=== PATIENT | female | born 1940 | race Caucasian/White ===

== ENCOUNTER 2017-09-01 17:30 | Inpatient (IN) | payer OTHER, MEDICAID ==
[~2017-09-01] VITALS: Ht 157.5 cm; Wt 62.1 kg
[2017-09-01] MEDS ORDERED: SODIUM CHLORIDE 0.9% 250 ML IV ONE (22:12)
[2017-09-01 23:33] LABS: BASOPHILS % 0.5 % (0.0-2.0); EOSINOPHILS % 2.2 % (0.0-5.0); HEMATOCRIT. 33.5 % (36.0-48.0); LYMPHOCYTES % 30.1 % (20.0-50.0); MEAN CORPUSCULAR HEMOGLOBIN 31.7 pg (28.0-32.0); MEAN CORPUSCULAR VOLUME 88.4 fL (81.0-99.0); MEAN PLATELET VOLUME 9.2 fl (7.4-10.4); MONOCYTES % 9.5 % (2.0-8.0); NEUTROPHILS % 57.7 % (40.0-76.0); PLATELET 280 x1000/uL (130-400); RED BLOOD CELL COUNT 3.79 mill/uL (4.2-5.4)
[2017-09-01 23:40] LABS: PROTHROMBIN TIME 10.7 sec (9.4-11.6)
[2017-09-01 23:44] LABS: CHLORIDE 85 mEq/L (98-107)
[2017-09-01 23:51] LABS: CREATINE KINASE 74 IU/L (26-192); ETHANOL BLOOD < 10 mg/dL
[2017-09-02] MEDS ORDERED: SODIUM CHLORIDE 0.9% 1,000 ML IV SCH (00:42)
[2017-09-02] MEDS ORDERED: GUAIFENESIN 200MG/10ML SUGAR FREE UDC PO PRN (00:45)
[2017-09-02] MEDS ORDERED: MORPHINE SULFATE 4 MG/ML CPJ (NOT FOR IM USE) IV PRN (00:45)
[2017-09-02] MEDS ORDERED: LORAZEPAM 0.5MG TABLET PO PRN (00:45)
[2017-09-02] MEDS ORDERED: NA PHOS,M-B/NA PHOS,DI-BA ENEMA 118ML PR PRN (00:45)
[2017-09-02] MEDS ORDERED: ONDANSETRON HCL 4MG/2ML VIAL IV PRN (00:45)
[2017-09-02] MEDS ORDERED: ACETAMINOPHEN 325MG TABLET PO PRN (00:45)
[2017-09-02] MEDS ORDERED: DOCUSATE SODIUM 100MG CAPSULE PO PRN (00:45)
[2017-09-02] MEDS ORDERED: IPRATROPIUM/ALBUTEROL 0.5-3(2.5)MG/3ML NEB INH PRN (00:45)
[2017-09-02] MEDS ORDERED: DIPHENHYDRAMINE 50MG/ML VIAL IV PRN (00:45)
[2017-09-02] MEDS ORDERED: CLONIDINE 0.1MG TABLET PO PRN (00:45)
[2017-09-02] MEDS ORDERED: HYDROCODONE/ACETAMINOPHEN 5/325MG TABLET PO PRN (00:45)
[2017-09-02] MEDS ORDERED: MAGNESIUM/ALUMINUM HYDROXIDE/SIMETHICONE 30ML UDC PO PRN (00:45)
[2017-09-02 06:03] LABS: CHLORIDE 88 mEq/L (98-107)
[2017-09-02 09:35] VITALS: BP 154/61
[2017-09-02 10:48] VITALS: BP 154/61
[2017-09-02] MEDS ORDERED: METF500T4 PO (11:24)
[2017-09-02] MEDS ORDERED: SIMV10TA6 PO (11:24)
[2017-09-02] MEDS ORDERED: CALC-816 PO (11:24)
[2017-09-02] MEDS ORDERED: IBUP-2028 PO (11:25)
[2017-09-02] MEDS ORDERED: MELO-106 PO (11:29)
[2017-09-02] MEDS ORDERED: LEVO100T PO (11:29)
[2017-09-02] MEDS ORDERED: HYDR25TA PO (11:29)
[2017-09-02] MEDS ORDERED: ATEN50TA PO (11:29)
[2017-09-02] MEDS ORDERED: DOCU-150 PO (11:29)
[2017-09-02] MEDS ORDERED: INFLUENZA VIRUS VACCINE 0.5ML SYR IM ONE (11:45)
[2017-09-02] MEDS ORDERED: PNEUMOCOCCAL 23-VAL P-SAC VAC 0.5 ML IM ONE (11:45)
[2017-09-02] MEDS: ASPIRIN 81MG EC TABLET PO SCH (13:14)
[2017-09-02] MEDS: SODIUM CHLORIDE 0.9% 1,000 ML IV SCH ×2 (13:14→20:32)
[2017-09-02] MEDS ORDERED: IBUPROFEN 600MG TABLET PO PRN (13:15)
[2017-09-02] MEDS: ENOXAPARIN 40MG/0.4ML SYR SUBCUT SCH (13:15)
[2017-09-02] MEDS: ATENOLOL 50 MG TABLET PO SCH (13:29)
[2017-09-02] MEDS: LEVOTHYROXINE SODIUM 50MCG TABLET PO SCH (13:29)
[2017-09-02] MEDS ORDERED: HYDROCHLOROTHIAZIDE 25MG TABLET PO SCH (15:00)
[2017-09-02 15:01] LABS: CREATINE KINASE 60 IU/L (26-192); CREATINE KINASE MB FRACTION 1.2 ng/mL (0.5-3.6)
[2017-09-02] MEDS ORDERED: CALCIUM CARBONATE/VITAMIN D3 500MG TABLET PO SCH (17:00)
[2017-09-02] MEDS: METFORMIN HCL 500MG TABLET PO SCH (17:59)
[2017-09-02] MEDS: DOCUSATE SODIUM 100MG CAPSULE PO SCH (17:59)
[2017-09-02 20:00] VITALS: BP 140/70
[2017-09-02] MEDS ORDERED: DEXTROSE 50% WATER 50ML SYRINGE IV PRN (20:00)
[2017-09-02] MEDS: ATORVASTATIN CALCIUM 10MG TABLET PO SCH (20:38)
[2017-09-02] MEDS: BLOOD SUGAR DIAGNOSTIC STRIP TEST SCH (20:39)
[2017-09-02] MEDS: INSULIN LISPRO 100 UNITS/ML SUBCUT SCH (20:42)
[2017-09-03] VITALS: BP 116/51
[2017-09-03 01:00] LABS: CREATINE KINASE MB FRACTION 1.2 ng/mL (0.5-3.6)
[2017-09-03 04:00] VITALS: BP 158/68
[2017-09-03] MEDS: BLOOD SUGAR DIAGNOSTIC STRIP TEST SCH ×4 (06:09→21:05)
[2017-09-03] MEDS: LEVOTHYROXINE SODIUM 50MCG TABLET PO SCH (06:10)
[2017-09-03] MEDS: INSULIN LISPRO 100 UNITS/ML SUBCUT SCH ×4 (06:12→21:00)
[2017-09-03 07:04] LABS: BASOPHILS % 0.5 % (0.0-2.0); HEMATOCRIT. 32.1 % (36.0-48.0); HEMOGLOBIN. 11.3 g/dL (12.0-16.0); MEAN CORPUSCULAR HEMOGLOBIN 31.3 pg (28.0-32.0); MEAN CORPUSCULAR VOLUME 89.3 fL (81.0-99.0); MEAN PLATELET VOLUME 9.4 fl (7.4-10.4); MONOCYTES % 10.8 % (2.0-8.0); NEUTROPHILS % 57.7 % (40.0-76.0); PLATELET 257 x1000/uL (130-400); RED CELL DISTRIBUTION WIDTH 12.3 % (11.6-14.6)
[2017-09-03 07:41] LABS: CHLORIDE 93 mEq/L (98-107)
[2017-09-03] MEDS: METFORMIN HCL 500MG TABLET PO SCH ×2 (07:58→16:36)
[2017-09-03 07:59] LABS: CREATINE KINASE 55 IU/L (26-192); HDL CHOLESTEROL 50 mg/dL (40-59); LDL CHOLESTEROL 134 mg/dL (5-100); T4 FREE 1.05 ng/dL (0.76-1.46)
[2017-09-03 08:00] VITALS: BP 123/78
[2017-09-03] MEDS: CALCIUM CARBONATE/VITAMIN D3 500MG TABLET PO SCH ×2 (09:14→16:36)
[2017-09-03] MEDS: ATENOLOL 50 MG TABLET PO SCH (09:14)
[2017-09-03] MEDS: ASPIRIN 81MG EC TABLET PO SCH (09:15)
[2017-09-03] MEDS: MELOXICAM 7.5MG TABLET PO SCH (09:15)
[2017-09-03] MEDS: DOCUSATE SODIUM 100MG CAPSULE PO SCH ×2 (09:15→16:37)
[2017-09-03 12:00] VITALS: BP 116/55
[2017-09-03] MEDS: ENOXAPARIN 40MG/0.4ML SYR SUBCUT SCH (12:37)
[2017-09-03] MEDS: SODIUM CHLORIDE 0.9% 1,000 ML IV SCH (14:25)
[2017-09-03 16:00] VITALS: BP 142/61
[2017-09-03 20:00] VITALS: BP 124/52
[2017-09-03] MEDS: ATORVASTATIN CALCIUM 10MG TABLET PO SCH (21:05)
[2017-09-04] VITALS: BP 136/56
[2017-09-04 04:00] VITALS: BP 163/80
[2017-09-04] MEDS: SODIUM CHLORIDE 0.9% 1,000 ML IV SCH (04:13)
[2017-09-04 05:31] LABS: BASOPHILS % 0.4 % (0.0-2.0); EOSINOPHILS % 4.3 % (0.0-5.0); HEMATOCRIT. 30.5 % (36.0-48.0); HEMOGLOBIN. 10.7 g/dL (12.0-16.0); LYMPHOCYTES % 32.1 % (20.0-50.0); MEAN CORPUSCULAR HEMOGLOBIN 31.6 pg (28.0-32.0); MEAN CORPUSCULAR VOLUME 89.7 fL (81.0-99.0); MEAN PLATELET VOLUME 9.4 fl (7.4-10.4); MONOCYTES % 9.5 % (2.0-8.0); NEUTROPHILS % 53.7 % (40.0-76.0); PLATELET 235 x1000/uL (130-400); RED CELL DISTRIBUTION WIDTH 12.1 % (11.6-14.6)
[2017-09-04 05:58] LABS: CHLORIDE 96 mEq/L (98-107)
[2017-09-04] MEDS: METFORMIN HCL 500MG TABLET PO SCH (06:46)
[2017-09-04] MEDS: BLOOD SUGAR DIAGNOSTIC STRIP TEST SCH (06:46)
[2017-09-04] MEDS: LEVOTHYROXINE SODIUM 50MCG TABLET PO SCH (06:46)
[2017-09-04] MEDS: INSULIN LISPRO 100 UNITS/ML SUBCUT SCH (07:15)
[2017-09-04 08:00] VITALS: BP 150/58
[2017-09-04] MEDS: ASPIRIN 81MG EC TABLET PO SCH (08:16)
[2017-09-04] MEDS: DOCUSATE SODIUM 100MG CAPSULE PO SCH (08:17)
[2017-09-04] MEDS: CALCIUM CARBONATE/VITAMIN D3 500MG TABLET PO SCH (08:17)
[2017-09-04] MEDS: MELOXICAM 7.5MG TABLET PO SCH (08:17)
[2017-09-04 08:24] VITALS: BP 150/58
[2017-09-04] MEDS ORDERED: ATENOLOL 50 MG TABLET PO SCH (09:00)
== END 2017-09-04 09:10 | disposition home or self-care (01) | DRG 682 ==
LOC: ER 21:59 → 5WST 09-02 00:03 → EDBEDREQTM 09-02 00:09 → EDBEDREQ 09-02 00:09 → ENRESERV 09-02 08:01
PROVIDERS: ADMIT Internal Medicine; ATTEND Internal Medicine
DX: N17.9 Acute kidney failure, unspecified (principal); G93.41 Metabolic encephalopathy; E87.1 Hypo-osmolality and hyponatremia; E86.0 Dehydration; E11.9 Type 2 diabetes mellitus without complications; G90.8 Other disorders of autonomic nervous system; E03.9 Hypothyroidism, unspecified; E78.5 Hyperlipidemia, unspecified; I10 Essential (primary) hypertension; Z79.899 Other long term (current) drug therapy
CPT/HCPCS: 36415; 70450; 71045; 80048; 80053; 80061; 82533; 82550; 82553; 82962; 83036; 83880; 83930; 83935; 84133; 84295; 84439; 84443; 84484; 85025; 85379; 85610; 90732; 93005; 93306; 93880; 96360; 96361; 99285; G0482; J1650; J7030; J7050

== ENCOUNTER 2019-03-15 02:22 | Inpatient (IN) | payer MEDICARE, MEDICAID ==
[~2019-03-15] VITALS: Ht 165.1 cm; Wt 64.0 kg
[~2019-03-15 02:22] MED LIST: ATEN50TA PO; CALC-38 PO; DOCU-150 PO; HYDR25TA PO; IBUP-2028 PO; LEVO100T PO; MELO-106 PO; METF-414 PO; SIMV10TA6 PO
[2019-03-15] MEDS ORDERED: ONDANSETRON HCL 4MG/2ML INJ IV STA (02:53)
[2019-03-15] MEDS ORDERED: FAMOTIDINE 20MG/2ML VIAL IV STA (02:53)
[2019-03-15] MEDS ORDERED: KETOROLAC 30MG/ML VIAL IV STA (02:53)
[2019-03-15 03:32] LABS: CHLORIDE 95 mEq/L (98-107); HEMATOCRIT. 36.7 % (36.0-48.0); HEMOGLOBIN. 12.3 g/dL (12.0-16.0); MEAN CORPUSCULAR VOLUME 89.4 fL (81.0-99.0); MEAN PLATELET VOLUME 9.5 fl (7.4-10.4); PLATELET 348 x1000/uL (130-400); RED BLOOD CELL COUNT 4.11 mill/uL (4.2-5.4); RED CELL DISTRIBUTION WIDTH 13.3 % (11.6-14.6)
[2019-03-15 05:56] LABS: CLARITY URINE CLEAR (CLEAR); COLOR URINE DARK YELLOW (YELLOW); KETONES URINE TRACE (NEGATIVE); LEUKOCYTE ESTERASE URINE 1+ (NEGATIVE); NITRITE URINE NEGATIVE (NEGATIVE); OCCULT BLOOD URINE NEGATIVE (NEGATIVE); PH URINE 6.5 (4.5-8.0); PROTEIN URINE TRACE (NEGATIVE); SPECIFIC GRAVITY URINE 1.018 (1.005-1.030)
[2019-03-15] MEDS ORDERED: CEFTRIAXONE 1 G PREMIX 50 ML IV ONE (06:30)
[2019-03-15] MEDS ORDERED: IOHEXOL-300 100 ML BOTTLE ONE (07:17)
[2019-03-15 08:47] LABS: PLATELET ESTIMATE NORMAL
[2019-03-15 09:18] VITALS: BP 148/66
[2019-03-15] MEDS ORDERED: BENA20TA10 MT (09:43)
[2019-03-15] MEDS ORDERED: KETOROLAC 30MG/ML VIAL IV PRN (10:45)
[2019-03-15] MEDS: SODIUM CHLORIDE 0.9% 1,000 ML IV SCH ×2 (12:13→21:13)
[2019-03-15] MEDS ORDERED: ACETAMINOPHEN 325MG TABLET PO PRN (19:30)
[2019-03-15] MEDS ORDERED: DIPHENHYDRAMINE 50MG/ML VIAL IV PRN (19:30)
[2019-03-15] MEDS ORDERED: ONDANSETRON HCL 4MG/2ML INJ IV PRN (19:30)
[2019-03-15 20:00] VITALS: BP 139/74
[2019-03-15] MEDS: FAMOTIDINE 20MG/2ML VIAL IV SCH (21:14)
[2019-03-16] VITALS: BP 128/65
[2019-03-16 04:00] VITALS: BP 131/62
[2019-03-16 08:00] VITALS: BP 152/72
[2019-03-16 08:25] LABS: BASOPHILS % 0.2 % (0.0-2.0); EOSINOPHILS % 1.2 % (0.0-5.0); HEMATOCRIT. 29.1 % (36.0-48.0); HEMOGLOBIN. 9.8 g/dL (12.0-16.0); LYMPHOCYTES % 10.3 % (20.0-50.0); MEAN CORPUSCULAR HEMOGLOBIN 29.7 pg (28.0-32.0); MEAN CORPUSCULAR VOLUME 88.5 fL (81.0-99.0); MEAN PLATELET VOLUME 9.3 fl (7.4-10.4); MONOCYTES % 5.4 % (2.0-8.0); NEUTROPHILS % 82.9 % (40.0-76.0); PLATELET 282 x1000/uL (130-400); RED BLOOD CELL COUNT 3.29 mill/uL (4.2-5.4); RED CELL DISTRIBUTION WIDTH 13.8 % (11.6-14.6)
[2019-03-16 08:28] LABS: CHLORIDE 104 mEq/L (98-107)
[2019-03-16 08:33] LABS: AMYLASE 454 IU/L (25-115); PHOSPHORUS 3.2 mg/dL (2.5-4.9)
[2019-03-16] MEDS: SODIUM CHLORIDE 0.9% 1,000 ML IV SCH ×2 (08:41→18:18)
[2019-03-16 12:00] VITALS: BP 166/76
[2019-03-16] MEDS ORDERED: DEXTROSE 50% WATER 50ML SYRINGE IV PRN (14:45)
[2019-03-16 16:00] VITALS: BP 127/78
[2019-03-16] MEDS: INSULIN LISPRO 100 UNITS/ML SUBCUT SCH ×2 (17:50→21:00)
[2019-03-16] MEDS: BLOOD SUGAR DIAGNOSTIC STRIP TEST SCH ×2 (17:52→21:07)
[2019-03-16 20:00] VITALS: BP 167/78
[2019-03-16] MEDS: FAMOTIDINE 20MG/2ML VIAL IV SCH (21:59)
[2019-03-16] MEDS: BENAZEPRIL 10MG TABLET PO SCH (21:59)
[2019-03-17] VITALS (7 sets, daily range): BP systolic 118–180; BP diastolic 54–78
[2019-03-17] MEDS: CLONIDINE 0.1MG TABLET PO PRN (00:55)
[2019-03-17] MEDS: LEVOTHYROXINE SODIUM 50MCG TABLET PO SCH (06:12)
[2019-03-17] MEDS: BLOOD SUGAR DIAGNOSTIC STRIP TEST SCH ×4 (06:13→22:05)
[2019-03-17 07:35] LABS: AMYLASE 251 IU/L (25-115)
[2019-03-17] MEDS: INSULIN LISPRO 100 UNITS/ML SUBCUT SCH ×4 (07:50→22:05)
[2019-03-17] MEDS: BENAZEPRIL 10MG TABLET PO SCH ×2 (09:00→21:37)
[2019-03-17] MEDS: SODIUM CHLORIDE 0.9% 1,000 ML IV SCH ×2 (14:52→21:37)
[2019-03-17] MEDS: FAMOTIDINE 20MG/2ML VIAL IV SCH (21:41)
[2019-03-18] VITALS: BP 103/76
[2019-03-18 04:00] VITALS: BP 167/76
[2019-03-18] MEDS: BLOOD SUGAR DIAGNOSTIC STRIP TEST SCH ×3 (06:23→17:20)
[2019-03-18] MEDS: LEVOTHYROXINE SODIUM 50MCG TABLET PO SCH (06:47)
[2019-03-18] MEDS: CLONIDINE 0.1MG TABLET PO PRN (06:53)
[2019-03-18] MEDS: INSULIN LISPRO 100 UNITS/ML SUBCUT SCH ×3 (07:50→17:23)
[2019-03-18 08:00] VITALS: BP 125/60
[2019-03-18 08:11] LABS: BASOPHILS % 0.3 % (0.0-2.0); HEMATOCRIT. 31.4 % (36.0-48.0); HEMOGLOBIN. 10.6 g/dL (12.0-16.0); LYMPHOCYTES % 14.5 % (20.0-50.0); MEAN CORPUSCULAR HEMOGLOBIN 29.9 pg (28.0-32.0); MEAN CORPUSCULAR VOLUME 88.7 fL (81.0-99.0); MEAN PLATELET VOLUME 9.1 fl (7.4-10.4); MONOCYTES % 7.9 % (2.0-8.0); NEUTROPHILS % 76.3 % (40.0-76.0); PLATELET 317 x1000/uL (130-400); RED BLOOD CELL COUNT 3.54 mill/uL (4.2-5.4); RED CELL DISTRIBUTION WIDTH 13.5 % (11.6-14.6)
[2019-03-18 08:33] LABS: CHLORIDE 99 mEq/L (98-107)
[2019-03-18 08:43] LABS: PHOSPHORUS 2.9 mg/dL (2.5-4.9)
[2019-03-18] MEDS: BENAZEPRIL 10MG TABLET PO SCH (08:46)
[2019-03-18] MEDS ORDERED: POTASSIUM CHLORIDE 20MEQ TABLET SR PO NR (11:30)
[2019-03-18 12:00] VITALS: BP 151/65
[2019-03-18 15:36] VITALS: BP 151/65
[2019-03-18 15:55] VITALS: BP 140/73
== END 2019-03-18 17:53 | disposition home or self-care (01) | DRG 444 ==
LOC: ER 02:22 → 6WST 05:28 → EDBEDREQTM 05:28 → EDBEDREQ 05:28 → ENRESERV 07:55
PROVIDERS: ADMIT Internal Medicine; ATTEND Internal Medicine
DX: K80.20 Calculus of gallbladder without cholecystitis without obstruction (principal); K85.90 Acute pancreatitis without necrosis or infection, unspecified; E87.1 Hypo-osmolality and hyponatremia; E03.9 Hypothyroidism, unspecified; E11.9 Type 2 diabetes mellitus without complications; E78.00 Pure hypercholesterolemia, unspecified; I10 Essential (primary) hypertension; N28.1 Cyst of kidney, acquired; K42.9 Umbilical hernia without obstruction or gangrene; K76.0 Fatty (change of) liver, not elsewhere classified; M19.90 Unspecified osteoarthritis, unspecified site; Z68.23 Body mass index [BMI] 23.0-23.9, adult; Z79.84 Long term (current) use of oral hypoglycemic drugs
CPT/HCPCS: 36415; 71045; 74177; 76705; 81003; 82150; 82962; 83605; 83735; 84100; 84484; 93005; 99285; J0696; J1885; J2405; J3490; J7030; Q9967

== ENCOUNTER 2020-07-31 23:06 | Inpatient (IN) | payer MEDICARE, MEDICAID ==
[~2020-07-31] VITALS: Ht 152.4 cm; Wt 70.0 kg
[~2020-07-31 23:06] MED LIST changes: -ATEN50TA PO; +BENA20TA10 MT; -CALC-38 PO; -DOCU-150 PO; -HYDR25TA PO; -IBUP-2028 PO; -SIMV10TA6 PO; +SIMV10TA97 PO
[2020-08-01 00:10] LABS: HEMOGLOBIN. 11.6 g/dL (12.0-16.0); MEAN CORPUSCULAR HEMOGLOBIN 29.3 pg (28.0-32.0); MEAN CORPUSCULAR VOLUME 90.6 fL (81.0-99.0); MEAN PLATELET VOLUME 8.5 fl (7.4-10.4); PLATELET 248 x1000/uL (130-400); RED BLOOD CELL COUNT 3.97 mill/uL (4.2-5.4)
[2020-08-01 00:19] LABS: CHLORIDE 97 mEq/L (98-107)
[2020-08-01 00:37] LABS: PLATELET ESTIMATE NORMAL
[2020-08-01] MEDS ORDERED: IOHEXOL-350 100 ML BOTTLE ONE (01:07)
[2020-08-01 01:10] LABS: CLARITY URINE TURBID (CLEAR); COLOR URINE DARK YELLOW (YELLOW); KETONES URINE TRACE (NEGATIVE); LEUKOCYTE ESTERASE URINE 1+ (NEGATIVE); NITRITE URINE POSITIVE (NEGATIVE); OCCULT BLOOD URINE TRACE (NEGATIVE); PH URINE 5.5 (4.5-8.0); PROTEIN URINE 2+ (NEGATIVE); SPECIFIC GRAVITY URINE 1.025 (1.005-1.030)
[2020-08-01] MEDS ORDERED: VANCOMYCIN 1 G PREMIX 200 ML IV SCH (01:15)
[2020-08-01] MEDS ORDERED: PIPERACILLIN/TAZOBACTAM 3.375GM/50ML PREMIX IV SCH (01:15)
[2020-08-01] MEDS ORDERED: SODIUM CHLORIDE 0.9% 1000ML BAG (SEPSIS BOLUS) IV ONE (01:30)
[2020-08-01] MEDS ORDERED: ACETAMINOPHEN 325MG TABLET PO PRN (05:45)
[2020-08-01] MEDS ORDERED: PIPERACILLIN/TAZ 3.375G PREMIX 50 ML IV SCH (05:45)
[2020-08-01] MEDS ORDERED: CLONIDINE 0.1MG TABLET PO PRN (05:45)
[2020-08-01] MEDS ORDERED: DOCUSATE SODIUM 100MG CAPSULE PO PRN (05:45)
[2020-08-01] MEDS ORDERED: GUAIFENESIN 200MG/10ML SUGAR FREE UDC PO PRN (05:45)
[2020-08-01] MEDS: SODIUM CHLORIDE 0.9% 1,000 ML IV SCH (05:45)
[2020-08-01] MEDS: LEVOTHYROXINE SODIUM 50MCG TABLET PO SCH (08:38)
[2020-08-01] MEDS: ENOXAPARIN 30MG/0.3ML SYR SUBCUT SCH (09:24)
[2020-08-01] MEDS: PIPERACILLIN/TAZOBACTAM 2.25 G in DEXTROSE 5% WATER 50 ML IV SCH ×3 (09:30→22:30)
[2020-08-01 12:32] LABS: HEMATOCRIT. 28.2 % (36.0-48.0); HEMOGLOBIN. 9.2 g/dL (12.0-16.0); MEAN CORPUSCULAR HEMOGLOBIN 29.5 pg (28.0-32.0); MEAN CORPUSCULAR VOLUME 90.4 fL (81.0-99.0); MEAN PLATELET VOLUME 9.3 fl (7.4-10.4); PLATELET 183 x1000/uL (130-400); RED BLOOD CELL COUNT 3.12 mill/uL (4.2-5.4)
[2020-08-01 12:40] LABS: CHLORIDE 104 mEq/L (98-107)
[2020-08-01 13:05] LABS: PLATELET ESTIMATE NORMAL
[2020-08-02] MEDS: SODIUM CHLORIDE 0.9% 1,000 ML IV SCH ×3 (01:40→20:47)
[2020-08-02 02:15] VITALS: BP 98/50
[2020-08-02] MEDS ORDERED: DEXTROSE 50% WATER 50ML SYRINGE IV PRN (03:00)
[2020-08-02] MEDS: PIPERACILLIN/TAZOBACTAM 2.25 G in DEXTROSE 5% WATER 50 ML IV SCH ×4 (06:21→23:52)
[2020-08-02] MEDS: LEVOTHYROXINE SODIUM 50MCG TABLET PO SCH ×2 (06:21→10:53)
[2020-08-02] MEDS: BLOOD SUGAR DIAGNOSTIC STRIP TEST SCH ×4 (06:22→20:13)
[2020-08-02 06:59] LABS: CHLORIDE 106 mEq/L (98-107)
[2020-08-02 07:14] LABS: HEMATOCRIT. 30.3 % (36.0-48.0); HEMOGLOBIN. 9.9 g/dL (12.0-16.0); MEAN CORPUSCULAR HEMOGLOBIN 29.2 pg (28.0-32.0); MEAN CORPUSCULAR VOLUME 89.5 fL (81.0-99.0); MEAN PLATELET VOLUME 9.4 fl (7.4-10.4); PLATELET 184 x1000/uL (130-400); RED BLOOD CELL COUNT 3.39 mill/uL (4.2-5.4); RED CELL DISTRIBUTION WIDTH 15.1 % (11.6-14.6)
[2020-08-02 07:15] LABS: PHOSPHORUS 4.3 mg/dL (2.5-4.9)
[2020-08-02 07:17] LABS: HDL CHOLESTEROL 17 mg/dL (40-59); LDL CHOLESTEROL 44 mg/dL (5-100); T4 FREE 0.68 ng/dL (0.76-1.46)
[2020-08-02] MEDS: INSULIN LISPRO 100 UNITS/ML SUBCUT SCH ×4 (07:50→20:13)
[2020-08-02 08:00] VITALS: BP 102/55
[2020-08-02] MEDS: ENOXAPARIN 30MG/0.3ML SYR SUBCUT SCH (08:25)
[2020-08-02 09:06] LABS: IMMUNOGLOBULIN A 457 mg/dL (64-422); IMMUNOGLOBULIN G 1282 mg/dL (586-1602); IMMUNOGLOBULIN M 60 mg/dL (26-217)
[2020-08-02] MEDS: VANCOMYCIN 750 MG PREMIX 150 ML IV SCH (10:52)
[2020-08-02] MEDS: MIDODRINE HCL 5MG TABLET PO SCH ×3 (10:58→17:26)
[2020-08-02 12:05] VITALS: BP 106/55
[2020-08-02 16:00] VITALS: BP 105/51
[2020-08-02 18:06] LABS: PLATELET ESTIMATE NORMAL
[2020-08-02 20:00] VITALS: BP 105/58
[2020-08-03] VITALS: BP 121/60
[2020-08-03 04:30] VITALS: BP 96/48
[2020-08-03] MEDS: PIPERACILLIN/TAZOBACTAM 2.25 G in DEXTROSE 5% WATER 50 ML IV SCH ×3 (05:55→17:31)
[2020-08-03] MEDS: LEVOTHYROXINE SODIUM 50MCG TABLET PO SCH (05:55)
[2020-08-03 06:28] LABS: HEMATOCRIT. 28.6 % (36.0-48.0); HEMOGLOBIN. 9.4 g/dL (12.0-16.0); MEAN CORPUSCULAR HEMOGLOBIN 29.5 pg (28.0-32.0); MEAN CORPUSCULAR VOLUME 89.9 fL (81.0-99.0); MEAN PLATELET VOLUME 9.7 fl (7.4-10.4); PLATELET 190 x1000/uL (130-400); RED BLOOD CELL COUNT 3.18 mill/uL (4.2-5.4); RED CELL DISTRIBUTION WIDTH 15.4 % (11.6-14.6)
[2020-08-03 06:38] LABS: CHLORIDE 109 mEq/L (98-107)
[2020-08-03 06:48] LABS: PHOSPHORUS 2.8 mg/dL (2.5-4.9)
[2020-08-03] MEDS: BLOOD SUGAR DIAGNOSTIC STRIP TEST SCH ×4 (06:58→20:18)
[2020-08-03] MEDS: INSULIN LISPRO 100 UNITS/ML SUBCUT SCH ×4 (07:13→20:18)
[2020-08-03 08:04] VITALS: BP 126/65
[2020-08-03] MEDS: ENOXAPARIN 30MG/0.3ML SYR SUBCUT SCH (08:30)
[2020-08-03] MEDS: MIDODRINE HCL 5MG TABLET PO SCH ×3 (08:30→17:31)
[2020-08-03] MEDS: VANCOMYCIN 750 MG PREMIX 150 ML IV SCH (08:31)
[2020-08-03] MEDS: SODIUM CHLORIDE 0.9% 1,000 ML IV SCH (08:35)
[2020-08-03 12:20] VITALS: BP 135/61
[2020-08-03 16:11] VITALS: BP 131/62
[2020-08-03 20:21] VITALS: BP 131/67
[2020-08-03 22:41] LABS: PLATELET ESTIMATE NORMAL
[2020-08-04] VITALS: BP 145/79
[2020-08-04] MEDS: PIPERACILLIN/TAZOBACTAM 2.25 G in DEXTROSE 5% WATER 50 ML IV SCH ×4 (01:01→17:02)
[2020-08-04] MEDS: SODIUM CHLORIDE 0.9% 1,000 ML IV SCH ×2 (01:02→12:44)
[2020-08-04 04:30] VITALS: BP 147/76
[2020-08-04] MEDS: LEVOTHYROXINE SODIUM 75MCG TABLET PO SCH (06:11)
[2020-08-04] MEDS: BLOOD SUGAR DIAGNOSTIC STRIP TEST SCH ×4 (06:11→20:44)
[2020-08-04] MEDS: INSULIN LISPRO 100 UNITS/ML SUBCUT SCH ×4 (07:15→20:44)
[2020-08-04] MEDS: ENOXAPARIN 30MG/0.3ML SYR SUBCUT SCH (07:43)
[2020-08-04 07:48] LABS: CHLORIDE 111 mEq/L (98-107)
[2020-08-04 08:00] VITALS: BP 155/77
[2020-08-04 08:06] LABS: BASOPHILS % 0.2 % (0.0-2.0); HEMATOCRIT. 30.8 % (36.0-48.0); HEMOGLOBIN. 10.2 g/dL (12.0-16.0); LYMPHOCYTES % 7.8 % (20.0-50.0); MEAN CORPUSCULAR HEMOGLOBIN 29.7 pg (28.0-32.0); MEAN CORPUSCULAR VOLUME 89.3 fL (81.0-99.0); MEAN PLATELET VOLUME 9.3 fl (7.4-10.4); MONOCYTES % 7.4 % (2.0-8.0); NEUTROPHILS % 83.6 % (40.0-76.0); PLATELET 196 x1000/uL (130-400); RED BLOOD CELL COUNT 3.45 mill/uL (4.2-5.4); RED CELL DISTRIBUTION WIDTH 15.2 % (11.6-14.6)
[2020-08-04 08:10] LABS: AMYLASE 80 IU/L (25-115); PHOSPHORUS 2.3 mg/dL (2.5-4.9)
[2020-08-04] MEDS ORDERED: POTASSIUM PHOS,M-BASIC-D-BASIC 15 MMOL in DEXT 5% WATER 245 ML IV SCH (11:00)
[2020-08-04 12:00] VITALS: BP 146/75
[2020-08-04] MEDS ORDERED: VANCOMYCIN 750 MG PREMIX 150 ML IV SCH ×2 (14:00)
[2020-08-04 16:00] VITALS: BP 134/82
[2020-08-04] MEDS: VANCOMYCIN 750 MG PREMIX 150 ML IV SCH (17:35)
[2020-08-04 20:15] VITALS: BP 162/79
[2020-08-05] VITALS: BP 153/74
[2020-08-05] MEDS: PIPERACILLIN/TAZOBACTAM 2.25 G in DEXTROSE 5% WATER 50 ML IV SCH ×3 (00:05→11:28)
[2020-08-05] MEDS: SODIUM CHLORIDE 0.9% 1,000 ML IV SCH (03:45)
[2020-08-05 04:00] VITALS: BP 169/88
[2020-08-05] MEDS: VANCOMYCIN 750 MG PREMIX 150 ML IV SCH ×2 (05:08→14:44)
[2020-08-05] MEDS: LEVOTHYROXINE SODIUM 75MCG TABLET PO SCH (05:08)
[2020-08-05 06:12] LABS: HEMATOCRIT. 31.8 % (36.0-48.0); HEMOGLOBIN. 10.7 g/dL (12.0-16.0); MEAN CORPUSCULAR HEMOGLOBIN 29.3 pg (28.0-32.0); MEAN CORPUSCULAR VOLUME 87.5 fL (81.0-99.0); MEAN PLATELET VOLUME 9.4 fl (7.4-10.4); PLATELET 192 x1000/uL (130-400); RED BLOOD CELL COUNT 3.63 mill/uL (4.2-5.4)
[2020-08-05 06:19] LABS: CHLORIDE 102 mEq/L (98-107)
[2020-08-05] MEDS: BLOOD SUGAR DIAGNOSTIC STRIP TEST SCH ×2 (06:21→11:28)
[2020-08-05 06:26] LABS: PHOSPHORUS 2.7 mg/dL (2.5-4.9)
[2020-08-05] MEDS: INSULIN LISPRO 100 UNITS/ML SUBCUT SCH ×2 (07:09→11:36)
[2020-08-05] MEDS: ENOXAPARIN 30MG/0.3ML SYR SUBCUT SCH (07:37)
[2020-08-05 08:00] VITALS: BP 125/83
[2020-08-05] MEDS ORDERED: MAGNESIUM 2 G PREMIX 50 ML IV NR (08:00)
[2020-08-05] MEDS ORDERED: LIDOCAINE HCL 1% 20ML VIAL (Pyxis) INJ ONE (08:29)
[2020-08-05] MEDS ORDERED: AMLODIPINE 5MG TABLET PO SCH (09:00)
[2020-08-05 12:00] VITALS: BP 120/85
[2020-08-05 12:17] LABS: PLATELET ESTIMATE NORMAL
[2020-08-05 15:42] VITALS: BP 120/85
== END 2020-08-05 16:48 | disposition home health service (06) | DRG 871 ==
LOC: ER 23:06 → MICUSO 08-01 03:08 → 7WST 08-01 20:55 → MICUSO 08-02 01:30 → 6WST 08-02 01:31
PROVIDERS: ADMIT Hospitalist; ATTEND Hospitalist
PROC: 02HV33Z Insertion of Infusion Device into Superior Vena Cava, Percutaneous Approach (ICD-10-PCS; principal; 2020-08-05)
PROC: B548ZZA Ultrasonography of Superior Vena Cava, Guidance (ICD-10-PCS; 2020-08-05)
DX: A41.9 Sepsis, unspecified organism (principal); G93.41 Metabolic encephalopathy; J18.9 Pneumonia, unspecified organism; N39.0 Urinary tract infection, site not specified; N17.9 Acute kidney failure, unspecified; E44.0 Moderate protein-calorie malnutrition; E87.1 Hypo-osmolality and hyponatremia; E87.2 Acidosis; J90 Pleural effusion, not elsewhere classified; E03.9 Hypothyroidism, unspecified; E78.5 Hyperlipidemia, unspecified; E83.51 Hypocalcemia; D64.9 Anemia, unspecified; E78.00 Pure hypercholesterolemia, unspecified; F03.90 Unspecified dementia, unspecified severity, without behavioral disturbance, psychotic disturbance, mood disturbance, and anxiety; I10 Essential (primary) hypertension; K80.70 Calculus of gallbladder and bile duct without cholecystitis without obstruction; Z20.822 Contact with and (suspected) exposure to COVID-19; R65.20 Severe sepsis without septic shock; R74.01 Elevation of levels of liver transaminase levels; E11.65 Type 2 diabetes mellitus with hyperglycemia; E83.42 Hypomagnesemia; Z68.30 Body mass index [BMI] 30.0-30.9, adult; Z83.3 Family history of diabetes mellitus; Z82.49 Family history of ischemic heart disease and other diseases of the circulatory system; B95.4 Other streptococcus as the cause of diseases classified elsewhere
CPT/HCPCS: 36415; 71045; 71275; 74181; 76700; 76937; 78227; 80053; 80061; 80202; 81003; 82150; 82248; 82533; 82784; 82962; 83036; 83605; 83735; 84100; 84145; 84439; 84443; 85025; 86334; 87077; 87186; 93005; 93970; 99291; A9537; C1725; C1769; J1650; J2543; J3370; J3475; J3490; J7060; Q9967; U0003

== ENCOUNTER 2021-10-08 16:37 | Emergency (ER) | payer MEDICARE, MEDICAID ==
[~2021-10-08] VITALS: Ht 152.4 cm; Wt 60.3 kg
[2021-10-08] MEDS ORDERED: LEVO50TA8 PO (16:54)
[2021-10-08] MEDS ORDERED: AMLO5TAB88 PO (16:54)
[2021-10-08] MEDS ORDERED: LOSA50TA41 PO (16:54)
[2021-10-08] MEDS ORDERED: ATOR20TA65 PO (16:54)
[2021-10-08] MEDS ORDERED: MECLIZINE 25MG TABLET PO ONE (18:00)
[2021-10-08 18:21] LABS: BASOPHILS % 0.5 % (0.0-2.0); EOSINOPHILS % 0.7 % (0.0-5.0); HEMATOCRIT. 33.4 % (36.0-48.0); HEMOGLOBIN. 11.2 g/dL (12.0-16.0); LYMPHOCYTES % 9.8 % (20.0-50.0); MEAN CORPUSCULAR HEMOGLOBIN 28.3 pg (28.0-32.0); MEAN CORPUSCULAR VOLUME 84.5 fL (81.0-99.0); MONOCYTES % 8.2 % (2.0-8.0); NEUTROPHILS % 80.8 % (40.0-76.0); RED BLOOD CELL COUNT 3.95 mill/uL (4.2-5.4); RED CELL DISTRIBUTION WIDTH 13.6 % (11.6-14.6)
[2021-10-08 18:26] LABS: CHLORIDE 98 mEq/L (98-107)
[2021-10-08 19:02] LABS: MEAN PLATELET VOLUME 8.3 fl (7.4-10.4); PLATELET 443 x1000/uL (130-400)
[2021-10-08 20:58] LABS: CLARITY URINE CLEAR (CLEAR); COLOR URINE YELLOW (YELLOW); KETONES URINE NEGATIVE (NEGATIVE); LEUKOCYTE ESTERASE URINE TRACE (NEGATIVE); NITRITE URINE NEGATIVE (NEGATIVE); OCCULT BLOOD URINE NEGATIVE (NEGATIVE); PROTEIN URINE NEGATIVE (NEGATIVE); SPECIFIC GRAVITY URINE 1.015 (1.005-1.030)
[2021-10-08 22:39] VITALS: BP 133/82
== END 2021-10-08 22:40 | disposition home or self-care (01) ==
LOC: ER 16:49
DX: R42 Dizziness and giddiness (principal); E78.00 Pure hypercholesterolemia, unspecified; E11.9 Type 2 diabetes mellitus without complications; I10 Essential (primary) hypertension; Z86.39 Personal history of other endocrine, nutritional and metabolic disease
CPT/HCPCS: 36415; 80053; 81003; 82962; 84484; 85025; 93005; 99285; J8597

== ENCOUNTER 2022-08-28 16:42 | Inpatient (IN) | payer MEDICARE, MEDICAID ==
[~2022-08-28] VITALS: Ht 152.4 cm; Wt 48.5 kg
[~2022-08-28 16:42] MED LIST changes: +AMLO5TAB88 PO; +ATOR20TA65 PO; -BENA20TA10 MT; -LEVO100T PO; +LEVO50TA8 PO; +LOSA50TA41 PO; -MELO-106 PO; -METF-414 PO; -SIMV10TA97 PO
[2022-08-28 18:13] LABS: HEMATOCRIT. 37.6 % (36.0-48.0); HEMOGLOBIN. 11.9 g/dL (12.0-16.0); MEAN CORPUSCULAR HEMOGLOBIN 27.9 pg (28.0-32.0); MEAN CORPUSCULAR VOLUME 88.5 fL (81.0-99.0); MEAN PLATELET VOLUME 8.4 fl (7.4-10.4); PLATELET 503 x1000/uL (130-400); RED BLOOD CELL COUNT 4.25 mill/uL (4.2-5.4); RED CELL DISTRIBUTION WIDTH 15.7 % (11.6-14.6)
[2022-08-28 18:20] LABS: CHLORIDE 92 mEq/L (98-107)
[2022-08-28 18:31] LABS: PLATELET ESTIMATE INCREASED
[2022-08-28] MEDS ORDERED: ONDANSETRON HCL 4MG/2ML INJ IV STA (21:41)
[2022-08-28] MEDS ORDERED: MORPHINE SULFATE 4 MG/ML CPJ (NOT FOR IM USE) IV STA (21:41)
[2022-08-28] MEDS ORDERED: SODIUM CHLORIDE 0.9% 1,000 ML IV ONE ×2 (21:45→22:30)
[2022-08-28] MEDS ORDERED: MORPHINE SULFATE 2 MG/ML CPJ (NOT FOR IM USE) IV PRN (23:45)
[2022-08-28] MEDS ORDERED: IPRATROPIUM BROMIDE (0.02%) 0.5MG/2.5ML NEB HHN PRN (23:45)
[2022-08-28] MEDS ORDERED: IPRATROPIUM/ALBUTEROL 0.5-3(2.5)MG/3ML NEB HHN PRN (23:45)
[2022-08-28] MEDS ORDERED: ALBUTEROL (0.083%) 2.5MG/3ML NEB HHN PRN (23:45)
[2022-08-28] MEDS ORDERED: CLONIDINE 0.1MG TABLET PO PRN (23:45)
[2022-08-28] MEDS ORDERED: ACETAMINOPHEN 650MG SUPP PR PRN ×2 (23:45)
[2022-08-29] MEDS ORDERED: IPRATROPIUM/ALBUTEROL 0.5-3(2.5)MG/3ML NEB HHN SCH
[2022-08-29 01:09] VITALS: BP 88/42
[2022-08-29 01:33] LABS: PHOSPHORUS 3.5 mg/dL (2.5-4.9)
[2022-08-29] MEDS: DEXT 5%/0.9% NACL 1,000 ML IV SCH ×2 (02:43→13:36)
[2022-08-29 06:25] LABS: MEAN CORPUSCULAR HEMOGLOBIN 29.4 pg (28.0-32.0); MEAN CORPUSCULAR VOLUME 88.3 fL (81.0-99.0); MEAN PLATELET VOLUME 8.4 fl (7.4-10.4); PLATELET 368 x1000/uL (130-400); RED BLOOD CELL COUNT 3.39 mill/uL (4.2-5.4); RED CELL DISTRIBUTION WIDTH 15.3 % (11.6-14.6)
[2022-08-29 06:30] LABS: D-DIMER 13.32 mg/L FEU (<0.50); INR 1.1; PROTHROMBIN TIME 11.4 sec (9.6-11.0)
[2022-08-29 06:37] LABS: CHLORIDE 102 mEq/L (98-107)
[2022-08-29 06:54] LABS: CREATINE KINASE 405 IU/L (26-192); CREATINE KINASE MB FRACTION 17.3 ng/mL (0.5-3.6); HDL CHOLESTEROL 49 mg/dL (40-59); LDL CHOLESTEROL 117 mg/dL (5-100); T4 FREE 0.87 ng/dL (0.76-1.46)
[2022-08-29 08:00] VITALS: BP 90/53
[2022-08-29] MEDS ORDERED: LOSARTAN POTASSIUM 25 MG TABLET PO SCH (09:00)
[2022-08-29] MEDS: LOSARTAN POTASSIUM 50 MG TABLET PO SCH (09:27)
[2022-08-29] MEDS: FERROUS SULFATE 325MG TABLET PO SCH (09:27)
[2022-08-29] MEDS: LEVOTHYROXINE SODIUM 25MCG TABLET PO SCH (09:27)
[2022-08-29] MEDS: FAMOTIDINE 20MG/2ML VIAL IV SCH (09:28)
[2022-08-29] MEDS: ENOXAPARIN 30MG/0.3ML SYR SUBCUT SCH (09:29)
[2022-08-29 12:00] VITALS: BP 112/57
[2022-08-29 13:22] LABS: PLATELET ESTIMATE NORMAL
[2022-08-29 14:15] LABS: *AMPHETAMINES SCREEN URINE NEGATIVE (NEGATIVE); *BARBITURATES SCREEN URINE NEGATIVE (NEGATIVE); *BENZODIAZEPINES SCREEN URINE NEGATIVE (NEGATIVE); *COCAINE SCREEN URINE NEGATIVE (NEGATIVE); CANNABINOID URINE SCREEN NEGATIVE (NEGATIVE); METHADONE URINE SCREEN NEGATIVE (NEGATIVE); OPIATES URINE SCREEN NEGATIVE (NEGATIVE); PHENCYCLIDINE URINE SCREEN NEGATIVE (NEGATIVE)
[2022-08-29 14:16] LABS: SODIUM URINE RANDOM < 5 mEq/L
[2022-08-29 16:00] VITALS: BP 118/62
[2022-08-29 16:43] LABS: CREATINE KINASE MB FRACTION 14.5 ng/mL (0.5-3.6)
[2022-08-29] MEDS ORDERED: NALOXONE HCL 0.4MG/ML VIAL IV PRN (17:00)
[2022-08-29] MEDS: SODIUM CHLORIDE 0.9% 1,000 ML IV SCH (17:26)
[2022-08-29 20:00] VITALS: BP 127/56
[2022-08-30] VITALS: BP 129/59
[2022-08-30] MEDS: SODIUM CHLORIDE 0.9% 1,000 ML IV SCH ×3 (00:20→18:14)
[2022-08-30] MEDS: ALBUTEROL (0.083%) 2.5MG/3ML NEB HHN SCH ×4 (01:48→21:40)
[2022-08-30] MEDS: ACETYLCYSTEINE 200MG/ML 20% VIAL 4ML INH SCH ×2 (01:48→12:58)
[2022-08-30] MEDS: IPRATROPIUM BROMIDE (0.02%) 0.5MG/2.5ML NEB HHN SCH ×4 (01:48→21:40)
[2022-08-30 04:00] VITALS: BP 125/59
[2022-08-30] MEDS: LEVOTHYROXINE SODIUM 25MCG TABLET PO SCH (07:08)
[2022-08-30] MEDS ORDERED: SODIUM BICARBONATE 4% (2.4MEQ) 5ML VIAL IV ONE (07:23)
[2022-08-30 07:40] LABS: HEMATOCRIT. 30.3 % (36.0-48.0); HEMOGLOBIN. 10.1 g/dL (12.0-16.0); MEAN CORPUSCULAR HEMOGLOBIN 29.3 pg (28.0-32.0); MEAN CORPUSCULAR VOLUME 87.6 fL (81.0-99.0); MEAN PLATELET VOLUME 8.6 fl (7.4-10.4); PLATELET 398 x1000/uL (130-400); RED BLOOD CELL COUNT 3.46 mill/uL (4.2-5.4); RED CELL DISTRIBUTION WIDTH 15.4 % (11.6-14.6)
[2022-08-30 07:45] LABS: INR 1.1; PROTHROMBIN TIME 11.4 sec (9.6-11.0)
[2022-08-30 08:00] VITALS: BP 120/60
[2022-08-30 08:46] LABS: AMYLASE 295 IU/L (25-115); CHLORIDE 105 mEq/L (98-107); PHOSPHORUS 2.7 mg/dL (2.5-4.9)
[2022-08-30] MEDS: ENOXAPARIN 30MG/0.3ML SYR SUBCUT SCH (09:00)
[2022-08-30] MEDS: FERROUS SULFATE 325MG TABLET PO SCH (11:02)
[2022-08-30] MEDS: LOSARTAN POTASSIUM 50 MG TABLET PO SCH (11:02)
[2022-08-30] MEDS: FAMOTIDINE 20MG/2ML VIAL IV SCH (11:02)
[2022-08-30 12:00] VITALS: BP 125/57
[2022-08-30] MEDS: SODIUM CHLORIDE 3% FOR INH 4ML UD NEB INH SCH (12:59)
[2022-08-30 14:20] LABS: PLATELET ESTIMATE NORMAL
[2022-08-30 16:00] VITALS: BP 115/63
[2022-08-30 20:00] VITALS: BP 101/50
[2022-08-31] VITALS (7 sets, daily range): BP systolic 120–142; BP diastolic 50–67
[2022-08-31] MEDS: SODIUM CHLORIDE 0.9% 1,000 ML IV SCH ×2 (01:32→09:53)
[2022-08-31] MEDS: LEVOTHYROXINE SODIUM 25MCG TABLET PO SCH (06:45)
[2022-08-31] MEDS: IPRATROPIUM BROMIDE (0.02%) 0.5MG/2.5ML NEB HHN SCH ×3 (07:37→20:59)
[2022-08-31] MEDS: ALBUTEROL (0.083%) 2.5MG/3ML NEB HHN SCH ×3 (07:37→20:59)
[2022-08-31] MEDS: SODIUM CHLORIDE 3% FOR INH 4ML UD NEB INH SCH (07:38)
[2022-08-31] MEDS: ACETYLCYSTEINE 200MG/ML 20% VIAL 4ML INH SCH (07:38)
[2022-08-31] MEDS: ENOXAPARIN 30MG/0.3ML SYR SUBCUT SCH (09:53)
[2022-08-31] MEDS: FERROUS SULFATE 325MG TABLET PO SCH (09:53)
[2022-08-31] MEDS: LOSARTAN POTASSIUM 50 MG TABLET PO SCH (09:53)
[2022-08-31] MEDS: FAMOTIDINE 20MG/2ML VIAL IV SCH (09:53)
[2022-08-31] MEDS ORDERED: IOHEXOL-350 100 ML BOTTLE ONE (13:54)
[2022-08-31] MEDS: ACETYLCYSTEINE 200MG/ML 20% VIAL 10ML INH SCH ×2 (14:52→21:00)
[2022-09-01] MEDS: IPRATROPIUM BROMIDE (0.02%) 0.5MG/2.5ML NEB HHN SCH ×3 (01:13→13:16)
[2022-09-01] MEDS: ALBUTEROL (0.083%) 2.5MG/3ML NEB HHN SCH ×3 (01:13→13:16)
[2022-09-01 04:00] VITALS: BP 148/52
[2022-09-01] MEDS: LEVOTHYROXINE SODIUM 25MCG TABLET PO SCH (06:34)
[2022-09-01 08:00] VITALS: BP 154/73
[2022-09-01] MEDS: SODIUM CHLORIDE 3% FOR INH 4ML UD NEB INH SCH (08:25)
[2022-09-01] MEDS: FAMOTIDINE 20MG/2ML VIAL IV SCH (09:00)
[2022-09-01] MEDS: FERROUS SULFATE 325MG TABLET PO SCH (09:17)
[2022-09-01] MEDS: LOSARTAN POTASSIUM 50 MG TABLET PO SCH (09:17)
[2022-09-01] MEDS: ENOXAPARIN 30MG/0.3ML SYR SUBCUT SCH (09:19)
[2022-09-01 12:00] VITALS: BP 113/58
[2022-09-01 16:09] VITALS: BP 133/66
[2022-09-01 17:18] VITALS: BP 133/66
[2022-09-02] MEDS ORDERED: FAMOTIDINE 20MG TABLET PO SCH (09:00)
== END 2022-09-01 18:06 | disposition home health service (06) | DRG 438 ==
LOC: ER 16:42 → MICUSO 22:44 → EDBEDREQTM 22:47 → EDBEDREQ 22:47 → 6EST 08-29 01:09
PROVIDERS: ADMIT Internal Medicine; ATTEND Internal Medicine
PROC: 0W9B3ZZ Drainage of Left Pleural Cavity, Percutaneous Approach (ICD-10-PCS; principal; 2022-08-30)
DX: K85.10 Biliary acute pancreatitis without necrosis or infection (principal); J96.00 Acute respiratory failure, unspecified whether with hypoxia or hypercapnia; R65.11 Systemic inflammatory response syndrome (SIRS) of non-infectious origin with acute organ dysfunction; J90 Pleural effusion, not elsewhere classified; E87.1 Hypo-osmolality and hyponatremia; E44.0 Moderate protein-calorie malnutrition; J84.9 Interstitial pulmonary disease, unspecified; Z20.822 Contact with and (suspected) exposure to COVID-19; K80.20 Calculus of gallbladder without cholecystitis without obstruction; E78.00 Pure hypercholesterolemia, unspecified; D64.9 Anemia, unspecified; D72.825 Bandemia; D75.839 Thrombocytosis, unspecified; E11.9 Type 2 diabetes mellitus without complications; I10 Essential (primary) hypertension; E03.9 Hypothyroidism, unspecified; Z79.899 Other long term (current) drug therapy; Z68.20 Body mass index [BMI] 20.0-20.9, adult
CPT/HCPCS: 32555; 36415; 71045; 71275; 74176; 76604; 78582; 80053; 80061; 80305; 82040; 82150; 82550; 82553; 82728; 83036; 83540; 83550; 83605; 83615; 83735; 83880; 83930; 83935; 84100; 84300; 84439; 84443; 84481; 84484; 85025; 85379; 88108; 93005; 93306; 93970; 94640; 97162; 97535; 99285; A9558; C1893; J1650; J2270; J2405; J3490; J7030; J7042; J7608; Q9967